=== PATIENT | female | born 1990 | race Caucasian/White ===

== ENCOUNTER 2025-03-21 00:10 | Emergency (ER) | payer OTHER, SELFPAY ==
[2025-03-21 00:38] VITALS: BP 182/100; PULSE 100; TEMP 36.7; O2SAT 99; BMI 47.5
--- NOTE | 2025-03-21 00:48 | ED.EXTPRO1 ---
HPI - Extremity Problem General Chief complaint: Extremity Problem, Nontraumatic Stated complaint: SWOLLEN VEIN ON LEG Time Seen by Provider: 03/21/25 00:45 Source: patient Mode of arrival: walk-in Limitations: no limitations History of Present Illness HPI Narrative: obese female has varicose veins of her lower extremities. Noticed red streak LLE yesterday while at work. left work and came here. leg is sore. No fever, chills or nausea Related Data Home Medications ?Medication ?Instructions ?Recorded ?Confirmed No Known Home Medications 03/21/25 03/21/25 Allergies Allergy/AdvReac Type Severity Reaction Status Date / Time No Known Drug Allergies Allergy Verified 03/21/25 00:42 Review of Systems ROS Status of ROS 10 or more systems reviewed and unremarkable except as noted in history and below PFSH PFSH Social History Little interest or pleasure in doing things: not at all Feeling down, depressed, or hopeless: not at all Exam Constitutional Vital Signs, click to edit/add: Last Vital Signs Temp 98.0 F 03/21/25 00:38 Pulse 100 H 03/21/25 00:38 Resp 18 03/21/25 00:38 BP 158/98 H 03/21/25 01:01 Pulse Ox 99 03/21/25 00:38 O2 Del Method Room Air 03/21/25 00:38 Common normals: no apparent distress, oriented x3, no limitations, healthy appearing, alert and well nourished [facility] Common normals: normocephalic and head/scalp atraumatic Eye Common normals: PERRL and EOMs intact bilaterally Respiratory Common normals: normal respiratory effort, no retractions, no use of accessory muscles and clear to auscultation bilaterally Cardio Common normals: regular rate, regular rhythm, S1 normal heart sound and S2 normal heart sound Extremity Other: red streak Lower left leg. Mild tenderness . No swelling Neuro Common normals: oriented x3, CN's II-XII intact bilaterally, moves all extremities and no focal motor deficits Psych Appearance: grossly normal Course Vital Signs Vital signs: Vital Signs Temperature 98.0 F 03/21/25 00:38 Pulse Rate 100 H 03/21/25 00:38 Respiratory Rate 18 03/21/25 00:38 Blood Pressure 182/100 H 03/21/25 00:38 Pulse Oximetry 99 03/21/25 00:38 Oxygen Delivery Method Room Air 03/21/25 00:38 Temperature 98.0 F 03/21/25 00:38 Pulse Rate 100 H 03/21/25 00:38 Respiratory Rate 18 03/21/25 00:38 Blood Pressure 158/98 H 03/21/25 01:01 Pulse Oximetry 99 03/21/25 00:38 Oxygen Delivery Method Room Air 03/21/25 00:38 MDM - Extremity (Nontraumatic) MDM Narrative Medical decision making narrative: presents tonight because she noticed red streak left lower extremity. Has varicose veins but this has more of the appearance of lymphangitis. Patient informed of the working diagnosis. Will treat with clindamycin. She is also advised to use Ibuprofen and to follow up with her doctor for recheck next week Discharge Plan Discharge Chief Complaint: Extremity Problem, Nontraumatic Clinical Impression: Acute lymphangitis of left lower limb Patient Disposition: Home, Self-Care Prescriptions / Home Meds: No Action No Known Home Medications Print Language: Dutch Instructions: Lymphangitis (ED) Additional Instructions: use ibuprofen for pain and follow up with your doctor next week for recheck. Return if any worsening Referrals: Physician,Non-Staff, MD [Primary Care Provider] - 1 week Discharge Date/Time: 03/21/25 01:09
[2025-03-21 01:01] VITALS: BP 158/98
[2025-03-21] MEDS: CLINDAMYCIN HCL 150 MG CAPSULE 450 MG PO (01:07)
== END 2025-03-21 01:09 | disposition home or self-care (01) ==
PROVIDERS: Emergency Provider Internal Medicine
DX: L03.126 Acute lymphangitis of left lower limb (principal)
CPT/HCPCS: 99283